=== PATIENT | male | born 1980 | race Two or more races ===

== ENCOUNTER 2023-04-13 07:51 | Inpatient (IN) | payer MEDICAID ==
[~2023-04-13] VITALS: Ht 167.6 cm; Wt 108.5 kg
[2023-04-13 08:41] LABS: Basophils # (auto) 0.1 10 ^3/uL (0-0.2); Basophils % (auto) 1.7 % (0.0-2.0); Eosinophils # (auto) 0.2 10 ^3/uL (0-0.8); Eosinophils % (auto) 2.4 % (0.0-7.0); Hematocrit 50.5 % (41.0-53.0); Hemoglobin 16.9 g/dL (13.5-17.5); Lymphocytes # (auto) 3.5 10 ^3/uL (0.4-5.4); Lymphocytes % (auto) 43.3 % (10.0-50.0); Mean Corpuscular Hgb Conc. 33.5 g/dL (32.0-36.0); Mean Corpuscular Volume 92.4 fL (80.0-100.0); Monocytes # (auto) 0.4 10 ^3/uL (0-1.3); Monocytes % (auto) 5.3 % (0.0-12.0); Neutrophils # (auto) 3.8 10 ^3/uL (1.6-8.6); Neutrophils % (auto) 47.3 % (37.0-80.0); Nucleated Red Blood Cells % 0.1 %; Red Blood Cells 5.46 10^6/uL (4.5-5.90); Red Cell Distribution Width 14.1 % (11.8-14.3)
[2023-04-13] MEDS ORDERED: MECLIZINE HCL 25 MG TAB PO ONE ×2 (08:45→10:45)
[2023-04-13 08:58] LABS: INR 0.99 (0.9-1.15); Partial Thromboplastin Time 24.2 sec (24.6-33.4)
[2023-04-13 09:28] LABS: Albumin 4.1 g/dL (3.4-5.0); Calcium 8.1 mg/dL (8.5-10.1); Magnesium 2.4 mg/dL (1.6-2.6); Potassium 3.6 mmol/L (3.5-5.1)
[2023-04-13 09:31] LABS: Bilirubin, Total 0.6 mg/dL (0.2-1.0); Total Protein 7.8 g/dL (6.4-8.2)
[2023-04-13 09:50] LABS: Urine Bacteria NONE SEEN /hpf (None Seen); Urine Blood Negative /uL (Negative); Urine Mucus FEW (None Seen); Urine Specific Gravity 1.027 (1.001-1.035); Urine WBC 1 /hpf (0 - 3)
[2023-04-13 10:14] LABS: Alcohol, Urine < 3.0 mg/dL (0-10); Amphetamine Screen, Urine NEGATIVE (NEGATIVE); Barbiturate Scree,Urine NEGATIVE (NEGATIVE); Benzodiazephine Screen, Urine NEGATIVE (NEGATIVE); Cannabinoid Screen, Urine NEGATIVE (NEGATIVE); Cocaine Screen, Urine NEGATIVE (NEGATIVE); Opiate Scree,Urine NEGATIVE (NEGATIVE); Phencyclidine Screen, Urine NEGATIVE (NEGATIVE)
[2023-04-13] MEDS ORDERED: DOCUSATE SOD 100 MG CAP PO PRN (15:45)
[2023-04-13] MEDS ORDERED: MORPHINE SULFATE INJ 2 MG/ml SYRG IV PRN (15:45)
[2023-04-13] MEDS ORDERED: hydrALAZINE HCL 20 MG/ML VL IV PRN (15:45)
[2023-04-13] MEDS ORDERED: DEXTROSE (50%) 50ML SYRG IV PRN (15:45)
[2023-04-13] MEDS ORDERED: ONDANSETRON HCL 4 MG/2 ML VIAL IV PRN (15:45)
[2023-04-13] MEDS: InsuLIN REG 1unit/0.01ml Soln (100units/ml) SC SCH ×2 (18:17→22:00)
[2023-04-13] MEDS: ACCU-CHEK COMFORT CURVE STRIP VI SCH ×2 (18:21→23:25)
[2023-04-13] MEDS: SODIUM CHLORIDE 0.9% 1,000 ML IV SCH (22:17)
[2023-04-13 23:01] VITALS: BP 119/62
[2023-04-13] MEDS: MECLIZINE HCL 25 MG TAB PO SCH (23:25)
[2023-04-14] MEDS: SODIUM CHLORIDE 0.9% 1,000 ML IV SCH ×4 (00:05→23:53)
[2023-04-14 05:05] VITALS: BP 131/72
[2023-04-14] MEDS: ACCU-CHEK COMFORT CURVE STRIP VI SCH ×4 (06:04→21:11)
[2023-04-14] MEDS: MECLIZINE HCL 25 MG TAB PO SCH ×3 (06:04→21:11)
[2023-04-14] MEDS: InsuLIN REG 1unit/0.01ml Soln (100units/ml) SC SCH ×4 (06:05→21:12)
[2023-04-14 07:27] LABS: Albumin 3.8 g/dL (3.4-5.0); Calcium 8.1 mg/dL (8.5-10.1); Potassium 3.6 mmol/L (3.5-5.1)
[2023-04-14 07:29] LABS: Basophils # (auto) 0.1 10 ^3/uL (0-0.2); Basophils % (auto) 0.6 % (0.0-2.0); Eosinophils # (auto) 0.1 10 ^3/uL (0-0.8); Eosinophils % (auto) 1.5 % (0.0-7.0); Hematocrit 48.5 % (41.0-53.0); Hemoglobin 16.5 g/dL (13.5-17.5); Lymphocytes # (auto) 2.4 10 ^3/uL (0.4-5.4); Lymphocytes % (auto) 27.3 % (10.0-50.0); Mean Corpuscular Hemoglobin 31.3 pg (28.0-32.0); Mean Corpuscular Volume 92.1 fL (80.0-100.0); Monocytes # (auto) 0.7 10 ^3/uL (0-1.3); Monocytes % (auto) 8.6 % (0.0-12.0); Neutrophils # (auto) 5.3 10 ^3/uL (1.6-8.6); Nucleated Red Blood Cells % 0.1 %; Red Blood Cells 5.27 10^6/uL (4.5-5.90); Red Cell Distribution Width 14.2 % (11.8-14.3); White Blood Cell 8.6 10^3/uL (4.4-10.8)
[2023-04-14 07:31] LABS: BUN/Creatinine Ratio 11.4 (10.0-20.0); Total Protein 7.7 g/dL (6.4-8.2)
[2023-04-14 08:00] VITALS: BP_SYST 120; BP_SYST 141; BP_DIAS 80; BP_DIAS 93
[2023-04-14 13:29] VITALS: BP 120/80
[2023-04-14 16:45] VITALS: BP 140/95
[2023-04-14 22:00] VITALS: BP 130/92
[2023-04-15 05:00] VITALS: BP 116/76
[2023-04-15] MEDS: MECLIZINE HCL 25 MG TAB PO SCH ×3 (05:04→22:09)
[2023-04-15] MEDS: ACCU-CHEK COMFORT CURVE STRIP VI SCH ×4 (06:34→22:09)
[2023-04-15] MEDS: InsuLIN REG 1unit/0.01ml Soln (100units/ml) SC SCH ×4 (06:34→22:00)
[2023-04-15 09:00] VITALS: BP 136/84
[2023-04-15] MEDS: SODIUM CHLORIDE 0.9% 1,000 ML IV SCH ×2 (09:25→17:45)
[2023-04-15 13:00] VITALS: BP 132/82
[2023-04-15] MEDS ORDERED: GADOTERATE MEG 10 MMOL/20ml INJ (0.5MMOL/ml) IV ONE (14:21)
[2023-04-15 17:00] VITALS: BP 144/86
[2023-04-15 20:00] VITALS: BP 130/84
[2023-04-15 22:00] VITALS: BP 130/84
[2023-04-16] MEDS: SODIUM CHLORIDE 0.9% 1,000 ML IV SCH ×2 (02:05→15:38)
[2023-04-16 05:00] VITALS: BP 108/68
[2023-04-16] MEDS: MECLIZINE HCL 25 MG TAB PO SCH ×2 (06:14→15:38)
[2023-04-16] MEDS: ACCU-CHEK COMFORT CURVE STRIP VI SCH ×2 (06:15→11:14)
[2023-04-16] MEDS: InsuLIN REG 1unit/0.01ml Soln (100units/ml) SC SCH ×2 (06:15→11:15)
[2023-04-16 08:30] VITALS: BP 105/72
[2023-04-16 09:00] VITALS: BP 105/72
[2023-04-16 12:52] VITALS: BP 134/95
[2023-04-16] MEDS ORDERED: MECL1TAB32 PO (14:15)
[2023-04-16 16:04] VITALS: BP 134/95
[2023-04-16 17:00] VITALS: BP 119/81
== END 2023-04-16 16:00 | disposition home or self-care (01) | DRG 111 ==
LOC: ER 07:51 → WEST WING 15:31
PROVIDERS: ADMIT Nurse Practitioner Family; ATTEND Nurse Practitioner Acute Care
DX: R42 Dizziness and giddiness (principal); E83.51 Hypocalcemia; R73.9 Hyperglycemia, unspecified; H55.09 Other forms of nystagmus; R03.0 Elevated blood-pressure reading, without diagnosis of hypertension; E66.9 Obesity, unspecified; Z68.38 Body mass index [BMI] 38.0-38.9, adult
CPT/HCPCS: 36415; 70450; 70553; 71045; 80053; 80307; 81001; 82024; 82310; 82962; 83735; 83880; 83970; 84146; 84443; 84484; 85025; 85610; 85730; 93005; 96360; 97163; G0378; J1815